=== PATIENT | male | born 1950 ===

== ENCOUNTER → 2021-07-21 | Outpatient (CLI) | payer MEDICARE | LOC: HEART CORB 08:30 | DX: I11.9 Hypertensive heart disease without heart failure (principal); R07.2 Precordial pain; R06.02 Shortness of breath | CPT/HCPCS: 93306 ==

== ENCOUNTER → 2021-08-08 | Outpatient (CLI) | payer MEDICARE | LOC: HEART CORB 12:51 | DX: R07.2 Precordial pain (principal); R94.39 Abnormal result of other cardiovascular function study ==

== ENCOUNTER → 2021-09-01 | Outpatient (CLI) | payer MEDICARE | LOC: HEART CORB 08:30 | DX: R07.2 Precordial pain (principal); R06.02 Shortness of breath; I10 Essential (primary) hypertension | CPT/HCPCS: 78452; A9502; J2785 ==